=== PATIENT | male | born 1945 | race Caucasian/White ===

== ENCOUNTER 2023-04-10 15:15 | Emergency (ER) | payer MEDICARE ==
[~2023-04-10] VITALS: Ht 177.8 cm; Wt 81.6 kg
[2023-04-10 15:42] VITALS: BP 163/86; PULSE 74; RESP 14; O2SAT 96
[2023-04-10] MEDS ORDERED: CYCL10TA16 PO (19:43)
[2023-04-10] MEDS ORDERED: GABA300C PO (19:43)
[2023-04-10] MEDS ORDERED: IBUP-2077 PO (19:43)
[2023-04-10] MEDS: CYCLOBENZAPRINE HCL 10 MG TABLET PO ONE (20:07)
[2023-04-10] MEDS: GABAPENTIN 300 MG CAPSULE PO SCH (20:07)
== END 2023-04-10 20:12 | disposition home or self-care (01) ==
LOC: EDH 15:15
DX: M47.812 Spondylosis without myelopathy or radiculopathy, cervical region (principal)
CPT/HCPCS: 72125